=== PATIENT | female | born 1995 | race Hispanic/Latino ===

== ENCOUNTER 2017-04-30 20:37 | Emergency (ER) | payer OTHER, SELFPAY ==
[2017-04-30 21:12] LABS: Bilirubin Negative (Negative); Blood, Urine Trace (Negative); Clarity Clear (Clear); Glucose, Urine (Dipstick) Negative (Negative); Leukocyte Negative (Negative); Nitrite Negative (Negative); Protein, Urine (Dipstick) Negative (Neg-Trace); Urobilinogen 0.2 mg/dL (0.2-1.0); pH, Urine 5.5 (5.0-9.0)
[2017-04-30 21:33] LABS: Bacteria/HPF None Seen HPF (None Seen); Hyaline Casts/LPF 0-3 HYALINE CAST LPF (0-3 Hyaline); Pregu Control Background? CLEAR/WHITE (CLR/WHITE); Pregu Control Bar Appear? YES (CONTROL BAR); RBC/HPF 0-3 HPF (0-3); Squamous Epithelial 0-3 HPF (0-3); WBC/HPF 0-3 HPF (0-3)
[2017-04-30 21:34] LABS: Pregnancy Test - Urine (BHCG) Negative (Negative)
[2017-04-30 22:16] LABS: #Basophils 0.1 thou/uL (0.0-0.2); #Eosinphils 0.1 thou/uL (0.0-0.7); #Lymphocytes 2.4 thou/uL (1.20-3.40); #Monocytes 0.6 thou/uL (0.11-0.59); %Basophils 0.6 % (0.0-1.0); %Eosinophils 0.7 % (0.0-10.0); %Lymphocytes 23.5 % (28.0-48.0); %Monocytes 6.4 % (0.0-4.0); %Neutrophils 68.8 % (31.0-61.0); Hemoglobin 12.2 g/dL (12.0-16.0); Mean Corpuscular HGB CONC 33.8 g/dL (32.0-36.0); Mean Corpuscular Hemoglobin 28.7 pg (25.0-35.0); Mean Corpuscular Volume 84.9 fl (77.0-87.0); Mean Platelet Volume 6.9 fL (7.4-10.4); Platelet Count 302 thou/uL (130-400); RBC Distribution Width 11.2 % (11.5-14.5); Red Blood Cell (RBC) Count 4.23 mill/uL (4.00-5.20); White Blood Cell (WBC) Count 10.1 thou/uL (4.8-10.8)
--- NOTE | 2017-04-30 22:18 | RAD ---
AP ABDOMINAL RADIOGRAPH: 04/30/17 HISTORY: Abdominal pain and constipation. Patient states abdominal pain for ten days. FINDINGS: Bowel gas pattern is nonspecific. No suspicious calcifications are seen. Osseous structures are intac t. IMPRESSION: Nonspecific bowel gas pattern. POS: [facility]
[2017-04-30 22:29] LABS: Anion Gap 15 mmol/L (10-20); BUN (Urea Nitrogen) 21 mg/dL (7.0-18.7); Calc. Creatinine Clearance 0 mL/min (70-130); Calcium 9.8 mg/dL (7.8-10.44); Carbon Dioxide 27 mmol/L (22-29); Chloride 102 mmol/L (98-107); Estimated GFR-MDRD 70; Glucose 93 mg/dL (70-105); Potassium 4.1 mmol/L (3.5-5.1); Sodium 140 mmol/L (136-145)
--- NOTE | 2017-05-01 07:38 | ULT ---
PELVIC ULTRASOUND: Date: 04/30/17 HISTORY: Pelvic pain. FINDINGS: Multiple endovaginal sonographic images of the pelvis are obtained. The uterus is retroverted, but de monstrates a normal sonographic appearance with homogeneous echotexture. Endometrial stripe is normal in thickness, measuring 0.5 cm in thickness. No fluid collection or fluid is seen in the endometrial canal. The ovaries demonstrate a normal sonographic appearance bilaterally with peripheral follicles in each ovary. The right ovary measures 3.8 cm x 2.2 cm x 2.5 cm. The left ovary measures 3.2 cm x 1.5 cm x 2.7 cm. Doppler evaluation of each ovary with spectral analysis and color flow evaluation demonstrates arteri al and venous flow in each ovary. No free fluid is seen in the cul-de-sac. IMPRESSION: Normal appearing uterus and bilateral ovaries. Arterial flow is documented in each ovary. POS: [facility]
== END 2017-05-01 00:23 | disposition home or self-care (01) ==
LOC: SCSER 20:37
DX: R10.2 Pelvic and perineal pain (principal)
CPT/HCPCS: 74018; 76856; 80048; 81003; 81015; 81025; 85025

== ENCOUNTER 2019-03-26 21:18 | Emergency (ER) | payer BC, SELFPAY ==
[~2019-03-26 21:18] MED LIST: Iopamidol-370 76% 500 ML 1 ML ONE
[2019-03-26 21:43] LABS: #Basophils 0.1 thou/uL (0.0-0.2); #Eosinphils 0.1 thou/uL (0.0-0.7); #Lymphocytes 3.1 thou/uL (1.20-3.40); #Monocytes 0.5 thou/uL (0.11-0.59); %Basophils 0.7 % (0.0-1.0); %Eosinophils 1.4 % (0.0-10.0); %Lymphocytes 28.8 % (21.0-51.0); %Monocytes 4.7 % (0.0-10.0); %Neutrophils 64.5 % (42.0-75.0); Hemoglobin 13.7 g/dL (12.0-16.0); Mean Corpuscular HGB CONC 34.3 g/dL (32.0-36.0); Mean Corpuscular Hemoglobin 29.4 pg (27.0-31.0); Mean Corpuscular Volume 85.8 fL (78.0-98.0); Mean Platelet Volume 7.6 fL (7.4-10.4); Platelet Count 321 thou/uL (130-400); RBC Distribution Width 12.7 % (11.5-14.5); Red Blood Cell (RBC) Count 4.66 mill/uL (4.20-5.40); White Blood Cell (WBC) Count 10.9 thou/uL (4.8-10.8)
[2019-03-26 21:44] LABS: Bilirubin Negative (Negative); Blood, Urine Negative (Negative); Clarity Clear (Clear); Glucose, Urine (Dipstick) Normal (Negative); Leukocyte Negative Leu/uL (Negative); Nitrite Negative (Negative); Protein, Urine (Dipstick) 10 mg/dL (Neg-Trace); Urobilinogen Normal mg/dL (Less than 2)
[2019-03-26 21:45] LABS: Pregnancy Test - Urine (BHCG) Negative (Negative); Pregu Control Background? CLEAR/WHITE (CLR/WHITE); Pregu Control Bar Appear? YES (CONTROL BAR); Specific Gravity 1.034 (1.002-1.036)
[2019-03-26 22:04] LABS: ALT (SGPT) 14 U/L (8-55); AST (SGOT) 16 U/L (5-34); Albumin 4.3 g/dL (3.5-5.0); Alkaline Phosphatase 131 U/L (40-110); Anion Gap 13 mmol/L (10-20); BUN (Urea Nitrogen) 17 mg/dL (7.0-18.7); Bilirubin, Total 0.2 mg/dL (0.2-1.2); Calc. Creatinine Clearance 0 mL/min (70-130); Calcium 9.2 mg/dL (7.8-10.44); Carbon Dioxide 28 mmol/L (22-29); Chloride 103 mmol/L (98-107); Estimated GFR-MDRD Greater than 90; Globulin 3.4 g/dL (2.4-3.5); Glucose 101 mg/dL (70-105); Lipase 21 U/L (8-78); Potassium 3.9 mmol/L (3.5-5.1); Protein, Total 7.7 g/dL (6.0-8.3); Sodium 140 mmol/L (136-145)
--- NOTE | 2019-03-26 23:40 | CT ---
CT ABDOMEN AND PELVIS WITH IV CONTRAST: History: Lower abdominal pain. FINDINGS: The lung bases are clear. The liver, spleen, pancreas, adrenal gland, and kidneys are normal. No calc ified gallstones are seen. The gallbladder is contracted. No free air, free fluid, or lymphadenopathy is seen in the abdomen or pelvis. The small bowel loops a re not abnormally dilated. A normal appearing appendix is present. Uterus and ovaries are noted. No a cute osseous abnormality is seen. IMPRESSION: No acute process. POS: [facility]
--- NOTE | 2019-03-27 08:38 | ULT ---
PRELIMINARY REPORT/[facility]/EMERGENCY AFTER HOURS PROCEDURE: EXAM: Ultrasound examination of the pelvis CLINICAL HISTORY: Pelvic pain x 3 days, diarrhea hx irregular periods uterus wnl endo wnl rt ov wnl, + blood flow lt o v wnl, + blood flow no free fluid TECHNIQUE: Transvaginal and transabdominal pelvic ultrasound (complete) with image documentation. COMPARISON: None provided. FINDINGS: ENDOMETRIUM: Endometrial stripe measures 8 mm. UTERUS/CERVIX: Anteverted, anteflexed uterus measures 6.9 x 2.8 x 4.4 cm. RIGHT OVARY: Right ovary measures 2.8 x 3.7 x 2.3 cm with normal color and spectral Doppler flow. LEFT OVARY: Left ovary measures 4.2 x 1.8 x 2.9 cm. Normal color and spectral Doppler flow. FREE FLUID: No free fluid. IMPRESSION: Unremarkable pelvic ultrasound. ELECTRONICALLY SIGNED BY: Steve Olivarez D.O. Mar 27, 2019 1:29:53 AM RETAIL RECEIVING CLERK This report is intended for review by the ordering physician only, in accordance of law. If you recei ve this report in error, please call [facility] at [phone]. FINAL REPORT PELVIC ULTRASOUND: HISTORY: Pelvic pain, x 3 days. Diarrhea. Irregular periods. TECHNIQUE: Transabdominal and endovaginal imaging of the pelvis is performed. Ovaries are interrogated with taveras scale, color flow, Doppler imaging, and spectral waveform analysis . FINDINGS: The uterus is identified without obvious masses. Endometrium has a homogeneous echotexture measuring 0.8 cm. Ovaries have a normal echotexture. There is no free fluid in the pelvis. Symmetric vascular flow to both ovaries. IMPRESSION: This report is in agreement with the preliminary report by [facility]. Unremarkable pelvic ult rasound. POS: [facility]
== END 2019-03-27 02:18 | disposition home or self-care (01) ==
LOC: ERS 21:18
DX: R10.84 Generalized abdominal pain (principal)
CPT/HCPCS: 36415; 74177; 76856; 80053; 81003; 81025; 83690; 85025; 96372; J0500; Q9967

== ENCOUNTER 2022-05-06 13:47 | Emergency (ER) | payer BC, OTHER, SELFPAY ==
[~2022-05-06 13:47] MED LIST changes: +Iopamidol 370 76% 100 ML VIAL ONE; -Iopamidol-370 76% 500 ML 1 ML ONE
[2022-05-06 14:15] LABS: #Eosinphils 0.1 thou/uL (0.0-0.7); #Lymphocytes 2.8 thou/uL (1.20-3.40); #Monocytes 0.4 thou/uL (0.11-0.59); #Neutrophils 5.8 thou/uL (1.40-6.50); %Basophils 0.5 % (0.0-1.0); %Eosinophils 0.6 % (0.0-10.0); %Lymphocytes 30.8 % (21.0-51.0); %Monocytes 4.7 % (0.0-10.0); %Neutrophils 63.4 % (42.0-75.0); Hemoglobin 14.3 g/dL (12.0-16.0); Mean Corpuscular HGB CONC 33.8 g/dL (32.0-36.0); Mean Corpuscular Hemoglobin 30.6 pg (27.0-31.0); Mean Corpuscular Volume 90.4 fl (78.0-98.0); Mean Platelet Volume 7.5 fL (7.4-10.4); Platelet Count 309 10x3/uL (130-400); RBC Distribution Width 11.2 % (11.5-14.5); Red Blood Cell (RBC) Count 4.68 mill/uL (4.20-5.40); White Blood Cell (WBC) Count 9.1 10x3/uL (4.8-10.8)
[2022-05-06 14:21] LABS: BHCG - Serum Negative (NEGATIVE); Pregs Control Background? CLEAR/WHITE (CLR/WHITE); Pregs Control Bar Appear? YES (CONTROL BAR)
[2022-05-06 14:38] LABS: ALT (SGPT) 12 U/L (8-55); AST (SGOT) 18 U/L (5-34); Albumin 4.5 g/dL (3.5-5.0); Alkaline Phosphatase 121 U/L (40-110); Anion Gap 16 mmol/L (10-20); BUN (Urea Nitrogen) 14 mg/dL (7.0-18.7); Bilirubin, Total 0.3 mg/dL (0.2-1.2); Calc. Creatinine Clearance 0 mL/min (70-130); Calcium 9.5 mg/dL (7.8-10.44); Carbon Dioxide 22 mmol/L (22-29); Chloride 105 mmol/L (98-107); Estimated GFR 111; Globulin 3.4 g/dL (2.4-3.5); Glucose 110 mg/dL (70-105); Potassium 3.5 mmol/L (3.5-5.1); Protein, Total 7.9 g/dL (6.0-8.3); Sodium 139 mmol/L (136-145)
[2022-05-06] MEDS ORDERED: Ondansetron PF 4 MG/2 ML Vial ONE (15:40)
[2022-05-06] MEDS ORDERED: fentaNYL 50 mcg/mL 1 mL Vial ONE (15:40)
== END 2022-05-06 16:13 | disposition home or self-care (01) ==
LOC: ERS 13:47
DX: S06.0X0A Concussion without loss of consciousness, initial encounter (principal); V49.40XA Driver injured in collision with unspecified motor vehicles in traffic accident, initial encounter
CPT/HCPCS: 70450; 71260; 72125; 74177; 80053; 84703; 85025; 96374; 96375; G0390; J2405; J3010; Q9967